=== PATIENT | male | born 2000 | race Caucasian/White ===

== ENCOUNTER 2023-10-24 17:17 | Outpatient (CLI) | payer BC ==
--- NOTE | 2023-10-24 19:37 | XRAY Report ---
PROCEDURE: Chest 2V INDICATIONS: CHEST PAIN TECHNIQUE: 2 views of the chest were acquired. COMPARISON: None. FINDINGS: Surgical changes and devices: None. Lungs and pleura: No pleural effusions or pneumothorax. Low lung volumes with prominent interstitial markings. Mediastinum: Mediastinal contours appear normal. Heart size is normal in size. Bones and chest wall: No suspicious bony lesions. Overlying soft tissues appear unremarkable. IMPRESSION: Low lung volumes with prominent interstitial markings may represent mild pulmonary edema versus bibas ilar vascular crowding. No focal airspace consolidation. Reviewed by: Dayna Nettles MD on 10/24/2023 7:36 PM PST Approved by: Dayna Nettles MD on 10/24/2023 7:36 PM PST Station ID: [id number]
== END 2023-10-24 17:18 | disposition home or self-care (01) ==
LOC: DI 17:17
PROVIDERS: ATTEND Specialist
DX: R07.9 Chest pain, unspecified (principal)

== ENCOUNTER 2023-10-24 17:32 | Emergency (ER) | payer BC ==
[2023-10-24 17:58] VITALS: O2SAT 98
--- NOTE | 2023-10-24 18:58 | ED Physician Documentation ---
PD HPI CHEST PAIN - Stated complaint Stated Complaint: CHEST PX - Chief complaint Chief Complaint: Cardiac - History obtained from History obtained from: Patient - Additional information Additional information: Otherwise healthy 23-year-old gentleman developed a sharp right-sided chest pain about 4 days ago. He notices it is worse when at rest and better when working. He also notes it is better if he raises his arms over his head. He is not short of breath. Denies pedal edema or calf pain. No family history of heart problems. No recent travel. Went to the clinic today with negative workup, but wanted a second opinion. PD PAST MEDICAL HISTORY - Past Medical History Past Medical History: No - Past Surgical History Past Surgical History: Yes HEENT: Rhinoplasty, Tonsil/Adenoidectomy - Present Medications Home Medications: Ambulatory Orders Medication Instructions Recorded Confirmed No Known Home Medications 10/24/23 10/24/23 - Allergies Allergies/Adverse Reactions: Allergies Allergy/AdvReac Type Severity Reaction Status Date / Time No Known Drug Allergies Allergy Verified 10/24/23 17:55 - Social History Does the pt smoke?: No Smoking Status: Never smoker Does the pt drink ETOH?: No Does the pt have substance abuse?: No - Immunizations Immunizations are current?: Yes PD ED PE NORMAL - Vitals Vital signs reviewed: Yes - General General: Alert and oriented X 3, No acute distress - Neck Neck: Supple, no meningeal sign, No bony TTP - Cardiac Cardiac: RRR, No murmur - Respiratory Respiratory: No respiratory distress, Clear bilaterally - Abdomen Abdomen: Non tender - Extremities Extremities: No edema, No calf tenderness / cord - Neuro Neuro: Alert and oriented X 3, Normal speech - Psych Psych: Normal mood, Normal affect Results - Vitals Vitals: Vital Signs - 24 hr 10/24/23 10/24/23 17:51 19:09 Temperature 36.1 C L Heart Rate 85 79 Respiratory 16 16 Rate Blood Pressure 141/93 H 138/77 H O2 Saturation 98 98 Oxygen O2 Source Room air - EKG (time done) 2913 EKG releavant findings:: EKG personally interpreted by author of this note. Relevant findings are: Rate: Rate (enter#) (86) Rhythm: NSR [place]: Normal Intervals: Normal NE QRS: Normal Ischemia: Q waves (Q waves in 3 and F only, likely normal variant). No: ST elevation c/w ischemia, T wave inversion Computer interpretation: Agree with computer - Rads (name of study) 2 view chest x-ray done outpatient this morning was viewed independently by me and looks negative for abnormality. Relevant Findings:: EMP independent interpretation of test Departure - Departure Disposition: 01 Home, Self Care Clinical Impression: Chest pain Qualifiers: Chest pain type: unspecified Qualified Code(s): R07.9 - Chest pain, unspecified Condition: Good Record reviewed to determine appropriate education?: Yes Instructions: ED Chest Pain NonCardiac Comments: Chest x-ray and EKG are looking fine, in combination with the low risk history I do not think this represents anything serious. Call your doctor to arrange a follow-up appointment, make the next available appointment. In the interim, return anytime if worse or if new symptoms develop. Forms: PCP List Discharge Date/Time: 10/24/23 19:09
[2023-10-24 19:19] VITALS: BP 138/77
== END 2023-10-24 19:09 | disposition home or self-care (01) ==
LOC: ED 17:32
DX: R07.9 Chest pain, unspecified (principal)
CPT/HCPCS: 93005; 99283